=== PATIENT | male | born 1965 | race Caucasian/White ===

== ENCOUNTER 2018-09-20 20:24 | Emergency (ER) | payer SELFPAY ==
[2018-09-20] MEDS ORDERED: MEPERIDINE HCL 25 MG/0.5 ML ONE (21:25)
[2018-09-20] MEDS ORDERED: ONDANSETRON 4 MG (ODT) TAB ONE (21:37)
--- NOTE | 2018-09-20 22:09 | ER ---
Nurse's Notes [facility] Name: Alireza Jones Age: 53 yrs Sex: Male : 1965 Arrival Date: 09/20/2018 Time: 20:26 Bed 28 Private MD: Diagnosis: Contusion of lower back and pelvis Presentation: 09/20 20:32 Presenting complaint:. 20:32 Presenting complaint: Patient states: pain to tail bone and lower back. I was standing ch three rungs up on a ladder and lost my footing. I landed on my bottom. this happened approx 1730. tingling down R leg. Transition of care: patient was not received from another setting of care. Onset of symptoms was September 20, 2018 at 17:30. Risk Assessment: Do you want to hurt yourself or someone else? Patient reports no desire to harm self or others. Initial Sepsis Screen: Does the patient meet any 2 criteria? No. Patient's initial sepsis screen is negative. Does the patient have a suspected source of infection? No. Patient's initial sepsis screen is negative. Care prior to arrival: Medication(s) given: Tylenol, 1000 mg, \T\ 1800. 20:32 Method Of Arrival: Ambulatory 20:32 Acuity: ALYSIA 3 ch Triage Assessment: 20:35 General: Appears in no apparent distress. uncomfortable, Behavior is calm, cooperative, ch appropriate for age. Pain: Complains of pain in back and buttocks Pain currently is 9 out of 10 on a pain scale. 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 - Social history:: Smoking status: Patient/guardian denies using tobacco, Patient/guardian denies using alcohol, street drugs. - Ebola Screening: : Patient negative for fever greater than or equal to 101.5 degrees Fahrenheit, and additional compatible Ebola Virus Disease symptoms Patient denies exposure to infectious person Patient denies travel to an Ebola-affected area in the 21 days before illness onset No symptoms or risks identified at this time. - Family history:: not pertinent. - Hospitalizations: : No recent hospitalization is reported. Screenin:46 Abuse screen: Denies threats or abuse. Denies injuries from another. Nutritional rv screening: No deficits noted. Tuberculosis screening: No symptoms or risk factors identified. Fall Risk None identified. Assessment: 20:50 General: Appears in no apparent distress. uncomfortable, Behavior is calm, cooperative. rv Pain: Complains of pain in back, tailbone. Neuro: Level of Consciousness is awake, alert, obeys commands, Oriented to person, place, time, situation. Cardiovascular: Patient's skin is warm and dry. Respiratory: Airway is patent. GI: No signs and/or symptoms were reported involving the gastrointestinal system. : No signs and/or symptoms were reported regarding the genitourinary system. EENT: No signs and/or symptoms were reported regarding the EENT system. Derm: Bruising that is dark purple, on right side, abdomen. Musculoskeletal: Vital Signs: 20:35 BP 170 / 104; Pulse 85; Resp 16; Temp 98.3; Pulse Ox 99% on R/A; Weight 111.13 kg; ch Height 5 ft. 10 in. (177.80 cm); Pain 8/10; 22:30 BP 141 / 79; Pulse 83; Resp 18; Temp 98; Pulse Ox 98% ; rv 20:35 Body Mass Index 35.15 (111.13 kg, 177.80 cm) ED Course: 20:26 Patient arrived in ED. am2 20:34 Triage completed. ch 20:35 Arm band placed on left wrist. Patient placed in an exam room, on a stretcher. ch 20:43 Anselmo Molina MD is Attending Physician. rn 20:50 Jose King RN is Primary Nurse. rv 21:00 Patient has correct armband on for positive identification. Bed in low position. Call rv light in reach. Side rails up X 1. 21:00 Pulse ox on. NIBP on. rv 21:39 CT Lumbar Spine Wo Con In Process Unspecified. EDMS 21:40 CT Pelvis wo Cont In Process Unspecified. EDMS 22:46 No provider procedures requiring assistance completed. Patient did not have IV access rv during this emergency room visit. Administered Medications: 21:05 Drug: Demerol 25 mg Route: IM; Site: left deltoid; ls4 22:44 Follow up: Response: Pain is unchanged, physician notified rv 22:31 Not Given (Patient Refused): Preemption 10 mg-325 mg 1 tabs PO once rv 22:32 Drug: traMADol 25 mg Route: PO; rv 22:43 Follow up: Response: Medication administered at discharge. rv Outcome: 22:08 Discharge ordered by MD. rn 22:46 Discharged to home ambulatory, with family. rv 22:46 Condition: good 22:46 Discharge instructions given to patient, Instructed on discharge instructions, follow up and referral plans. medication usage, Demonstrated understanding of instructions, follow-up care, medications, Prescriptions given X 1. 22:47 Patient left the ED. rv Signatures: Dispatcher [employer] EDMS Annie Hdz, RN RN Anselmo Molina MD MD rn Moreno, Amanda am2 Jose King RN RN rv Sherin Kaplan RN RN ls4 Corrections: (The following items were deleted from the chart) 22:45 22:00 BP 141 / 79; Pulse 83bpm; Resp 18bpm; Pulse Ox 98%; Temp 98F; rv rv
--- NOTE | 2018-09-20 22:09 | EDPHYS ---
Physician Documentation [facility] Name: Alireza Jones Age: 53 yrs Sex: Male : 1965 Arrival Date: 09/20/2018 Time: 20:26 Bed 28 Private MD: ED Physician Anslemo Molina HPI: 09/20 22:03 This 53 yrs old Male presents to ER via Ambulatory with complaints of Fall rn Injury - from ladder. 22:03 Details of fall: The patient fell from a height, from a ladder, approximately 3 feet. rn Onset: The symptoms/episode began/occurred just prior to arrival. Associated injuries: The patient sustained injury to the low back. Severity of symptoms: At their worst the symptoms were moderate, in the emergency department the symptoms are unchanged. The patient has not experienced similar symptoms in the past. Reports slipped off step-ladder, landed directly on buttocks onto hard floor, no head injury, reports isolated pain to tailbone and lumbar spine, + chronic hx of sciatica.. 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 - Social history:: Smoking status: Patient/guardian denies using tobacco, Patient/guardian denies using alcohol, street drugs. - Ebola Screening: : Patient negative for fever greater than or equal to 101.5 degrees Fahrenheit, and additional compatible Ebola Virus Disease symptoms Patient denies exposure to infectious person Patient denies travel to an Ebola-affected area in the 21 days before illness onset No symptoms or risks identified at this time. - Family history:: not pertinent. - Hospitalizations: : No recent hospitalization is reported. ROS: 22:03 Constitutional: Negative for fever, chills, and weight loss, Eyes: Negative for injury, rn pain, redness, and discharge, Neck: Negative for injury, pain, and swelling, Cardiovascular: Negative for chest pain, palpitations, and edema, Respiratory: Negative for shortness of breath, cough, wheezing, and pleuritic chest pain, Abdomen/GI: Negative for abdominal pain, nausea, vomiting, diarrhea, and constipation, Back: + lower back pain and tailbone injury MS/Extremity: Negative for injury and deformity, Skin: Negative for injury, rash, and discoloration, Neuro: Negative for headache, weakness, numbness, tingling, and seizure. Exam: 22:03 Constitutional: This is a well developed, well nourished patient who is awake, alert, rn laying on left side Head/Face: Normocephalic, atraumatic. Neck: NO midline tenderness Abdomen/GI: soft, non-tender Back: + mild coccyx tenderness, + right low perilumbar ecchymosis, no stepoff. No crepitus. MS/ Extremity: Pulses equal, no cyanosis. + right prosthetic limb, hip ROM normal bilateral Neuro: Awake and alert, GCS 15, oriented to person, place, time, and situation. Cranial nerves II-XII grossly intact. Motor strength 5/5 in all extremities. Sensory grossly intact. Vital Signs: 20:35 BP 170 / 104; Pulse 85; Resp 16; Temp 98.3; Pulse Ox 99% on R/A; Weight 111.13 kg; ch Height 5 ft. 10 in. (177.80 cm); Pain 8/10; 22:30 BP 141 / 79; Pulse 83; Resp 18; Temp 98; Pulse Ox 98% ; rv 20:35 Body Mass Index 35.15 (111.13 kg, 177.80 cm) ch MDM: 20:43 Patient medically screened. rn 22:03 Differential diagnosis: contusion, fracture, sprain, strain. Data reviewed: vital rn signs, nurses notes, radiologic studies, CT scan, and as a result, I will discharge patient. Counseling: I had a detailed discussion with the patient and/or guardian regarding: the historical points, exam findings, and any diagnostic results supporting the discharge/admit diagnosis, radiology results, the need for outpatient follow up, to return to the emergency department if symptoms worsen or persist or if there are any questions or concerns that arise at home. Special discussion: I discussed with the patient/guardian in detail that at this point there is no indication for admission to the hospital. It is understood, however, that if the symptoms persist or worsen the patient needs to return immediately for re-evaluation. 09/20 20:49 Order name: CT Lumbar Spine Wo Con rn 09/20 20:49 Order name: CT Pelvis wo Cont rn Administered Medications: 21:05 Drug: Demerol 25 mg Route: IM; Site: left deltoid; ls4 22:44 Follow up: Response: Pain is unchanged, physician notified rv 22:31 Not Given (Patient Refused): Billingsley 10 mg-325 mg 1 tabs PO once rv 22:32 Drug: traMADol 25 mg Route: PO; rv 22:43 Follow up: Response: Medication administered at discharge. rv Disposition: 09/20/18 22:08 Discharged to Home. Impression: Contusion of lower back and pelvis. - Condition is Stable. - Discharge Instructions: Contusion. - Prescriptions for Tramadol 50 mg Oral Tablet - take 1 tablet by ORAL route every 8 hours as needed; 20 tablet. - Medication Reconciliation Form, Thank You Letter, Antibiotic Education, Prescription Opioid Use form. - Follow up: Private Physician; When: As needed; Reason: Recheck today's complaints, Re-evaluation by your physician. - Problem is new. - Symptoms have improved. Signatures: Dispatcher [employer] EDMS Annie Hdz RN RN Anselmo Molina MD MD rn Vicente, Ronaldo, RN RN rv Stewart, Lisa, RN RN ls4 Corrections: (The following items were deleted from the chart) 22:47 22:08 09/20/2018 22:08 Discharged to Home. Impression: Contusion of lower back and rv pelvis. Condition is Stable. Forms are Medication Reconciliation Form, Thank You Letter, Antibiotic Education, Prescription Opioid Use. Follow up: Private Physician; When: As needed; Reason: Recheck today's complaints, Re-evaluation by your physician. Problem is new. Symptoms have improved. rn
[2018-09-20] MEDS ORDERED: TRAMADOL HCL 50 MG TAB ONE (22:44)
--- NOTE | 2018-09-21 13:01 | RAD REPORT ---
EXAM DESCRIPTION: CTSpine Lumbar Wo Con09/21/2018 11:42 am CLINICAL HISTORY: Back injury with back pain status post fall COMPARISON: None TECHNIQUE: Computed axial tomography lumbar spine was obtained with coronal and sagittal reconstruct ion. All CT scans are performed using dose optimization technique as appropriate and may include automated exposure control or mA/KV adjustment according to patient size. FINDINGS: No fracture is seen. No dislocation is noted. Spondylosis involves the lumbar spine resulting in spinal stenosis IMPRESSION: Negative for a lumbar fracture.
--- NOTE | 2018-09-21 13:03 | RAD REPORT ---
EXAM DESCRIPTION: CT - Pelvis Wo Cont - 09/21/2018 11:42 am CLINICAL HISTORY: Pelvic pain status post fall COMPARISON: None. TECHNIQUE: Computed axial tomography of the pelvis was obtained All CT scans are performed using dose optimization technique as appropriate and may include automated exposure control or mA/KV adjustment according to patient size. FINDINGS: No fracture or dislocation is seen. A hematoma is not visualized. No ascites is noted . Umbilical and inguinal hernias contain fat IMPRESSION: No fracture is seen
== END 2018-09-20 22:47 | disposition home or self-care (01) ==
LOC: ER 20:24
DX: S30.0XXA Contusion of lower back and pelvis, initial encounter (principal); W11.XXXA Fall on and from ladder, initial encounter; A52.16 Charcot's arthropathy (tabetic)
CPT/HCPCS: 72131; 72192; 96372; 99284; J2175